=== PATIENT | male | born 1960 | race Caucasian/White ===

== ENCOUNTER → 2018-02-03 | Outpatient (CLI) | payer MEDICARE | LOC: M OUTALCOH 11:10 | DX: F12.20 Cannabis dependence, uncomplicated (principal) | CPT/HCPCS: H0001 ==

== ENCOUNTER 2018-02-13 15:12 | Outpatient (RCR) | payer MEDICARE | END 2018-03-03 | LOC: M OUTALCOH 15:12 | DX: F12.20 Cannabis dependence, uncomplicated (principal); F17.200 Nicotine dependence, unspecified, uncomplicated | CPT/HCPCS: 90834 ==

== ENCOUNTER 2018-03-05 08:52 | Outpatient (RCR) | payer MEDICARE | END 2018-04-03 | LOC: M OUTALCOH 03-12 13:47 | DX: F12.20 Cannabis dependence, uncomplicated (principal); F17.200 Nicotine dependence, unspecified, uncomplicated | CPT/HCPCS: 90853 ==

== ENCOUNTER 2018-04-08 16:00 | Outpatient (RCR) | payer MEDICARE | END 2018-05-03 | LOC: M OUTALCOH 04-10 15:50 | DX: F12.20 Cannabis dependence, uncomplicated (principal); F17.200 Nicotine dependence, unspecified, uncomplicated | CPT/HCPCS: 90853 ==

== ENCOUNTER 2018-05-08 15:51 | Outpatient (RCR) | payer MEDICARE | END 2018-06-03 | LOC: M OUTALCOH 15:51 | DX: F12.20 Cannabis dependence, uncomplicated (principal); F17.200 Nicotine dependence, unspecified, uncomplicated | CPT/HCPCS: 90853 ==

== ENCOUNTER 2018-07-14 09:19 | Outpatient (RCR) | payer MEDICARE | END 2018-08-03 | LOC: M OUTALCOH 07-16 16:00 | DX: F12.20 Cannabis dependence, uncomplicated (principal); F17.200 Nicotine dependence, unspecified, uncomplicated | CPT/HCPCS: 90834 ==

== ENCOUNTER → 2018-09-03 | Outpatient (CLI) | payer MEDICARE | LOC: M RAD 12:50 | DX: Z12.2 Encounter for screening for malignant neoplasm of respiratory organs (principal); F17.210 Nicotine dependence, cigarettes, uncomplicated | CPT/HCPCS: G0297 ==

== ENCOUNTER → 2018-12-15 | Outpatient (CLI) | payer MEDICARE ==
--- NOTE | 2018-12-15 13:48 | REP ---
CT of the chest without IV contrast: Comparison is the lung screening CT dated 09/03/2018. On the comparison study there was a 7 mm lung nodule in the left lower lobe. This nodule is again identified today and is unchanged in size. No other lung nodules or masses are identified. There are no infiltrates or effusions. There is no mediastinal lymph node enlargement. In the absence of IV contrast the study is insensitive for hilar lymph node enlargement. There is no axillary lymph node enlargement. The unenhanced thoracic aorta is unremarkable for except for occasional calcified atheroma. Cardiac size is normal. In the upper abdomen there is hepato steatosis. The gallbladder, pancreas, spleen and adrenals are unremarkable. Impression: The left lower lobe lung nodule is unchanged. This converts this lesion to a category II lesion. Follow-up chest CT is recommended in 1 year. Hepato steatosis. Electronically Signed by Ryan Pelaez MD 12/15/2018 01:40 P
== END ==
LOC: M RAD 11:12
PROVIDERS: ATTEND Nurse Practitioner Adult Health
DX: R91.8 Other nonspecific abnormal finding of lung field (principal); K75.81 Nonalcoholic steatohepatitis (NASH)